=== PATIENT | male | born 1945 | race African-American/Black ===

== ENCOUNTER 2016-11-24 22:48 | Emergency (ER) | payer MEDICARE, OTHER ==
[~2016-11-24] VITALS: Ht 188 cm; Wt 90.3 kg
--- NOTE | 2016-11-24 22:50 | NUR ---
[facility] STROKE CALLED
--- NOTE | 2016-11-24 22:52 | NUR ---
CALLED [facility]S [facility] HOTLINE, PRESENTED PT, AWAITING CALL BACK FROM
--- NOTE | 2016-11-24 22:55 | NUR ---
IV LINE STARTED BLOOD DRAWN AND SENT TO LAB.
--- NOTE | 2016-11-24 22:55 | NUR ---
PT TO CT
--- NOTE | 2016-11-24 22:57 | NUR ---
[facility] PT TO RADIOLOGY FOR HEAD CT SCAN VIA GURNEY.
--- NOTE | 2016-11-24 22:59 | NUR ---
patient to ct
--- NOTE | 2016-11-24 23:05 | NUR ---
PT BACK FROM CT
[2016-11-24 23:07] LABS: BASOPHILS # (AUTO) 0.1 /CMM (0.0-0.2); BASOPHILS % (AUTO) 1.6 % (0.0-2.0); EOSINOPHILS # (AUTO) 0.2 /CMM (0.0-0.7); HEMATOCRIT 49 % (39-51); HEMOGLOBIN 16.3 g/dL (13.5-17.5); LYMPHOCYTES # (AUTO) 2.2 /CMM (0.8-4.8); LYMPHOCYTES % (AUTO) 28.7 % (20.0-44.0); MEAN CORPUSCULAR HEMOGLOBIN 29 PG (26.0-33.0); MEAN CORPUSCULAR HGB CONC 34 g/dl (31.0-36.0); MEAN CORPUSCULAR VOLUME 86 fL (80-96); MONOCYTES # (AUTO) 0.9 /CMM (0.1-1.30); MONOCYTES % (AUTO) 11.2 % (2.0-12.0); NEUTROPHILS # (AUTO) 4.4 /CMM (1.8-8.9); NEUTROPHILS % (AUTO) 56.5 % (43.0-81.0); PLATELET COUNT (AUTO) 218 /CMM (150-450); RDW COEFFICIENT OF VARIATION 13.8 (11.5-15.0); RED BLOOD CELL COUNT(AUTO) 5.64 MIL/uL (4.5-6.0); WHITE BLOOD COUNT (AUTO) 7.8 K/uL (4.3-11.0)
--- NOTE | 2016-11-24 23:08 | NUR ---
BACK FROM CT, ACCUCHEK 175MG/DL
--- NOTE | 2016-11-24 23:15 | NUR ---
PHYLICIA LAZARO TALKING TO RADIOLOGIST.
[2016-11-24 23:19] LABS: CARBON DIOXIDE 32 mmol/L (21-32); CHLORIDE 103 mmol/L (98-107); CREATININE 1.5 mg/dL (0.6-1.3); GFR 56 mL/min (>60); GLUCOSE 130 mg/dL (74-106); POTASSIUM 3.7 mmol/L (3.5-5.1); SODIUM SERUM 141 mmol/L (136-145); UREA NITROGEN, BLOOD 15 mg/dL (7-18)
[2016-11-24 23:22] LABS: INR 0.99 (0.87-1.13); PROTHROMBIN TIME 10.7 SECS (9.5-12.7)
--- NOTE | 2016-11-24 23:22 | NUR ---
DR MCRAE ON THE TELE FOR STOKE ASSESSMENT
--- NOTE | 2016-11-24 23:27 | NUR ---
PHYLICIA LAZARO TALKING TO DR. MCRAE REGARDING PT.
[2016-11-24 23:28] LABS: TROPONIN I < 0.017 ng/mL (0.00-0.056)
[2016-11-25] MEDS ORDERED: ALTEPLASE 100 MG in WATER FOR INJECTION,STERILE 100 ML IV ONE ×2
[2016-11-25] MEDS ORDERED: IOHEXOL-350 100 ML VIAL IV ONE (00:02)
[2016-11-25] MEDS ORDERED: IV NS 0.9% 250 ML IV ONE (00:02)
--- NOTE | 2016-11-25 00:05 | NUR ---
PATIENT STARTED WITH TPA, BOLUS OF ALTEPLASE GIVEN 8.2 OVER A MINUTE TO INTACT RIGHT WRIST IV 18G, INFUSION 73.6/HR FOLLOWED. BLEEDING PRECAUTIONS INITIATED. SAFETY MAINTAINED
--- NOTE | 2016-11-25 00:10 | NUR ---
PATIENT WENT TO CT
--- NOTE | 2016-11-25 00:20 | NUR ---
CAME BACK FROM CAT SCAN, PATIENT IS ALERT ORIENTED X4, TPA ONGOING, NO ADVERSE REACTION NOTED. NEUROCHECK DONE Q5MINS
[2016-11-25] MEDS ORDERED: hydrALAZINE HCL IV 20 MG VIAL ONE (00:42)
--- NOTE | 2016-11-25 00:46 | NUR ---
PATIENT GIVEN WITH HYDRALAZINE IV FOR BP 195/99, WILL MONITOR
--- NOTE | 2016-11-25 00:55 | NUR ---
TPA INFUSION COMPLETE, CLAUDIA WELL. NO BLEEDING NOTED. SAFETY MAINTAINED. Addendum: 11/25/16 at 0117 by MEY TPA COMPLETED AT 0104
[2016-11-25] MEDS ORDERED: hydrALAZINE HCL IV 20 MG VIAL IV ONE (01:00)
--- NOTE | 2016-11-25 01:00 | NUR ---
REPORT GIVEN [facility]S MONICA JERNIGAN FOR CONTINUITY OF CARE.
--- NOTE | 2016-11-25 01:07 | NUR ---
PATIENT'S BP AT THIS TIME IS 179/93, HR 98, O2 SATURATION 96 WITH O2 CANNULA AT 2LPM. PATIENT IS ALERT ORIENTED X3, TALKING AND LAUGHING.
[2016-11-25 01:09] VITALS: BP 179/89
--- NOTE | 2016-11-25 01:20 | NUR ---
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
--- NOTE | 2016-11-25 01:28 | NUR ---
REPORT GIVEN TO CARLOS STITCH BURNISHER (PHONE NUMBER [phone]) AT [facility] FOR CONTINUITY OF CARE
== END 2016-11-25 01:20 | disposition short-term general hospital (02) ==
LOC: ER 22:51
DX: I63.9 Cerebral infarction, unspecified (principal); I10 Essential (primary) hypertension; F17.200 Nicotine dependence, unspecified, uncomplicated
CPT/HCPCS: 36415; 37195; 70450 ×2; 70496; 70498; 71010; 80048; 82962; 84484; 85025; 85730; 93005; 99291; A4606; J0360; J2997; J7050; Q9967; Z7610